=== PATIENT | male | born 1965 | race Caucasian/White ===

== ENCOUNTER 2023-12-23 05:29 | Emergency (ER) | payer BC ==
[2023-12-23] MEDS ORDERED: ACYCLOVIR ONE (06:09)
[2023-12-23] MEDS: ACYCLOVIR PO ONE (06:17)
--- NOTE | 2023-12-23 06:18 | ERPHSYRPT ---
- History of Present Illness Time Seen by Provider: 12/23/23 06:00 Source: patient Exam Limitations: no limitations Patient Subjective Stated Complaint: painful rash that started on the L side of head on thursday. Triage Nursing Assessment: pt ambulatory to bed by self, at bedside, pt alert and oriented x3, skin pwd, pt c/o painful rash on L side of head that started thursday. afebrile, rash is going into eyelid. rating pain 9/10 Physician History: 58-year-old male presents to emergency department for evaluation of a painful rash at his left scalp into his forehead and upper eyelid that started 3 to 4 days ago. Patient states that he has been treating it with a topical [id number] cream. Patient denies eye pain. No blurred vision. Patient's symptoms are constant. Symptoms are moderate in intensity. Palpation to the involved area reproduces pain. Patient reports that his left scalp is particularly tender to touch. No trauma no fever no nausea vomiting no photophobia no neck pain no nuchal rigidity. Patient denies headache. No meningeal signs. Patient otherwise feels well. He voices no other complaints or concerns at this time. Portions of this note were created with voice recognition technology. There may be grammatical, spelling, punctuation or sound alike errors Timing/Duration: day(s) (4 days ago) Severity: moderate Modifying Factors: Improves With: nothing Associated Symptoms: denies symptoms Allergies/Adverse Reactions: No Known Drug Allergies Allergy (Verified 12/23/23 05:43) Hx Tetanus, Diphtheria Vaccination/Date Given: Yes Hx Influenza Vaccination/Date Given: No Hx Pneumococcal Vaccination/Date Given: No Travel Risk - International Travel Have you traveled outside of the country in past 3 weeks: No - Emerging Infectious Disease Are you exhibiting symptoms associated with any current EIDs: No - Review of Systems Constitutional: No Symptoms, No Fever, No Chills Eyes: No Symptoms Ears, Nose, & Throat: No Symptoms Respiratory: No Symptoms, No Cough, No Dyspnea Cardiac: No Symptoms, No Chest Pain, No Edema, No Syncope Abdominal/Gastrointestinal: No Symptoms, No Abdominal Pain, No Nausea, No Vomiting, No Diarrhea Genitourinary Symptoms: No Symptoms, No Dysuria Musculoskeletal: No Symptoms, No Back Pain, No Neck Pain Skin: No Symptoms, No Rash Neurological: No Symptoms, No Dizziness, No Focal Weakness, No Sensory Changes Psychological: No Symptoms Endocrine: No Symptoms Hematologic/Lymphatic: No Symptoms Immunological/Allergic: No Symptoms All Other Systems: Reviewed and Negative - Past Medical History Pertinent Past Medical History: No Neurological History: No Pertinent History ENT History: No Pertinent History Cardiac History: Arrhythmia Respiratory History: No Pertinent History Endocrine Medical History: No Pertinent History Musculoskeletal History: No Pertinent History GI Medical History: No Pertinent History History: No Pertinent History Psycho-Social History: No Pertinent History Male Reproductive Disorders: No Pertinent History Other Medical History: Hx hand surgery - Past Surgical History Past Surgical History: Yes Neuro Surgical History: No Pertinent History Cardiac: No Pertinent History Respiratory: No Pertinent History Gastrointestinal: Hernia Repair Genitourinary: No Pertinent History Musculoskeletal: Orthopedic Surgery Male Surgical History: No Pertinent History Other Surgical History: RIGHT HAND, rotator cuff, L carpal tunnel Significant Family History: diabetes - Social History Smoking Status: Former smoker How long have you smoked: 10 Exposure to second hand smoke: No Alcohol Use: Socially Drug Use: none Patient Lives Alone: No - Social Determinants of Health Will the patient participate in the screening: Yes Do you worry about a steady place to live?: Yes Do you have any problems with any of the following?: No known problems In the past 12 months,have you had to go without utilities?: No Transportation Issues: No Has anyone in your support network made you feel unsafe?: No Have you or anyone in your house had to go without enough: No - Nursing Vital Signs Nursing Vital Signs: Initial Vital Signs Blood Pressure 132/94 12/23/23 05:43 O2 Sat by Pulse Oximetry 96 12/23/23 05:43 Pain Scale Pain Intensity 9 - Physical Exam General Appearance: no apparent distress, alert Eye Exam: PERRL/EOMI, eyes nml inspection, other (Eye exam is normal. No change in vision. No pain. No corneal injection or crusting) Ears, Nose, Throat Exam: normal ENT inspection, TMs normal, pharynx normal, moist mucous membranes Neck Exam: normal inspection, non-tender, supple, full range of motion Respiratory Exam: normal breath sounds, lungs clear, airway intact, No respiratory distress Cardiovascular Exam: regular rate/rhythm, normal heart sounds, normal peripheral pulses Gastrointestinal/Abdomen Exam: soft, normal bowel sounds, No tenderness, No mass Back Exam: normal inspection, normal range of motion, No CVA tenderness, No vertebral tenderness Extremity Exam: normal inspection, normal range of motion, pelvis stable Neurologic Exam: alert, oriented x 3, cooperative, normal mood/affect, nml cerebellar function, nml station & gait, sensation nml, No motor deficits Skin Exam: normal color, warm, dry, other (Rash appears to be shingles along the V1 dermatome. No superimposed cellulitis.), No rash Lymphatic Exam: No adenopathy SpO2 Interpretation: normal SpO2: 95 O2 Delivery: Room Air - Course Nursing assessment & vital signs reviewed: Yes Ordered Tests: Medication Summary Discontinued Medications Generic Name Dose Route Start Last Admin Trade Name Anastacioq PRN Reason Stop Dose Admin Acyclovir 800 mg 12/23/23 06:07 12/23/23 06:17 Acyclovir 200 Mg Capsule PO 12/23/23 06:08 800 mg STAT ONE Administration Acyclovir Confirm 12/23/23 06:09 Acyclovir 200 Mg Capsule Administered 12/23/23 06:10 Dose 600 mg .ROUTE .STK-MED ONE Ketorolac Tromethamine 60 mg 12/23/23 06:28 Ketorolac Tromethamine 30 Mg/Ml Inj IM 12/23/23 06:29 STAT ONE Ketorolac Tromethamine Confirm 12/23/23 06:29 Ketorolac Tromethamine 30 Mg/Ml Inj Administered 12/23/23 06:30 Dose 60 mg .ROUTE .STK-MED ONE - Progress Progress: improved Progress Note: 58-year-old male presents to our ED for evaluation of a painful rash at his left scalp that has been going on for 3 to 4 days. Physical exam reveals a rash consistent with shingles. There does not appear to be involvement of the globe. Patient received a dose of acyclovir in our ED. Patient reports that he received a dose of steroid on Thursday for musculoskeletal pain. We will hold off on additional steroid at this time. A prescription for acyclovir, [place] and Toradol forwarded to patient's pharmacy. Work note provided. Patient advised to follow-up with his eye doctor within 48 hours for a reevaluation. Plan of care discussed with patient. at bedside. They understand and agree to follow-up as discussed. They voiced no other complaints or concerns at this time. Portions of this note were created with voice recognition technology. There may be grammatical, spelling, punctuation or sound alike errors Complexity of problem addressed is moderate acute complicated. No critical care time. Complex of data reviewed and analyzed is none. No specialized testing ordered. Diagnosis made based on history and physical exam. Risk of complication and or risk of morbidity/mortality of patient management is moderate. A prescription for [place], Toradol and acyclovir forwarded to patient's pharmacy. Vital stable. Time spent to discharge patient is approximately 20 minutes. Plan of care established for shared decision making. No social determinants of health present to impede follow-up Portions of this note were created with voice recognition technology. There may be grammatical, spelling, punctuation or sound alike errors 12/23/23 06:42 Counseled pt/family regarding: diagnosis, need for follow-up - Departure Departure Disposition: Home Clinical Impression: Shingles Condition: Stable Critical Care Time: No Referrals: VIK JAMIL PUMPER BREWERY [Primary Care Provider] - Follow up/PCP as directed Additional Instructions: Please follow-up with your eye doctor within 48 hours for a reevaluation Please follow-up with your primary care doctor within 48 hours for reevaluation Discharge/Care Plan LEDA PATIÑO was seen on 12/23/23 in the Emergency Room. The patient was counseled regarding Diagnosis,Lab results, Imaging studies, need for follow up and when to return to the Emergency Room. Prescriptions given: Discharge Note I have spoken with the patient and/or caregivers. I have explained the patient's condition, diagnosis and treatment plan based on the information available to me at this time. I have answered the patient's and/or caregiver's questions and addressed any concerns. The patient and/or caregivers have as good understanding of the patient's diagnosis, condition and treatment plan as can be expected at this point. The vital signs have been stable. The patient's condition is stable and appropriate for discharge from the emergency department. The patient will pursue further outpatient evaluation with the primary care physician or other designated or consulting physician as outlined in the discharge instructions. The patient and/or caregivers are agreeable to this plan of care and follow-up instructions have been explained in detail. The patient and/or caregivers have received these instruction. The patient/and or caregivers are aware that any significant change in condition or worsening of symptoms should prompt an immediate return to this or the closest emergency department or call 911. Forms: Work/School Release Form Prescriptions: Hydrocodone/APAP 5/325 [[place] 5/325 mg] 1 each PO Q6H PRN PRN #10 tablet MDD 4 PRN Reason: Pain Acyclovir 800 mg [Acyclovir] 800 mg PO 5XD 7 Days #35 tablet Ketorolac Trometh 10 mg Tab [TORAdol 10 MG TABLET] 10 mg PO TID 5 Days #15 tablet
[2023-12-23] MEDS ORDERED: TORAdol 30 mg Injection ONE (06:29)
[2023-12-23] MEDS: TORAdol 30 mg Injection IM ONE (06:30)
[2023-12-23 06:32] VITALS: BP 127/81; PULSE 91; RESP 18
[2023-12-23 06:40] VITALS: O2SAT 95
== END 2023-12-23 06:56 | disposition home or self-care (01) ==
LOC: ED 05:29
DX: B02.9 Zoster without complications (principal); R21 Rash and other nonspecific skin eruption; Z79.891 Long term (current) use of opiate analgesic; Z79.899 Other long term (current) drug therapy; Z59.819 Housing instability, housed unspecified
CPT/HCPCS: 96372; 99283; J1885; A9270-GY